=== PATIENT | male | born 2005 | race Caucasian/White ===

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

== ENCOUNTER 2023-04-03 23:12 | Emergency (ER) | payer OTHER, SELFPAY ==
[2023-04-03 23:13] VITALS: BP 131/89; PULSE 68; RESP 16; TEMP 36.5; BMI 26.2
[2023-04-03 23:16] VITALS: BP 131/89; PULSE 68; RESP 16; TEMP 36.5
--- NOTE | 2023-04-03 23:36 | EDS_ITS ---
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 [id number], right ring finger cut. Tetanus Immunization: 5-10 years [facility] Medical History (Updated 04/04/23 @ 00:[address] Wiliam Burr MD) Encounter for screening for COVID-19 Large tonsils Thumb fracture Home Medications ondansetron 4 mg disintegrating tablet 8 mg (2 x 4 mg) PO Q8H PRN PRN Nausea #12 tabs 06/01/21 [Rx Last Taken Unknown] Allergy/AdvReac Type Severity Reaction Status Date / Time No Known Allergies Allergy Verified 04/03/23 23:13 Social History (Updated 05/31/21 @ 22:[address] Wiliam Burr MD) Smoking Status: Never smoker ROS ROS ED Constitutional Constitutional ED: Denies chills or fever(s) Musculoskeletal Musculoskeletal: Reports extremity pain; Denies neck pain Integumentary Reports wounds; Denies Abrasions or rash Neurologic Neurologic: Denies paresthesias or weakness EXAM Physical Exam Const Vital Signs: 04/03/23 23:13 04/03/23 23:16 Temperature 97.7 F L 97.7 F L Temperature Source Temporal Temporal Pulse Rate 68 68 Respiratory Rate 16 16 Blood Pressure 131/89 H 131/89 H Blood Pressure Mean 103 103 Positive well nourished and well developed General Appearance ED: well developed and NAD Neck full ROM and supple Back/Spine normal ROM and normal to inspection Extremity Extremity Narrative: 1 cm horizontal laceration volar aspect of the right ring finger at the crease of the DIPJ. FDP function fully intact. Minor venous bleeding. Neuro oriented x3, no focal motor deficits and no sensory deficits noted Sensorium / Orientation: alert Psych mental status grossly normal and thought process normal Skin Skin Narrative: Laceration right ring finger see above Rashes: no rashes MDM MDM MDM Narrative Medical decision making narrative: Laceration repaired, tetanus updated. No need for x-ray here low suspicion of foreign body this is a superficial laceration although it is full-thickness through the skin. Close a patient follow-up for suture removal given appropriate work restrictions. Procedures Lacerations R ring finger: Length: 1 cm Depth: Sub Q Shape: Linear Prep: Sterile Conditions and Chlorhexadine Laceration repair: Irrigated, Lidocaine with epi (topical LET only) and Skin sutures Irrigated (ml): 50 Number of Sutures/[place]: 3 Suture Information: Ethilon, Simple and 5-0 Discharge Plan Triage Chief Complaint: Laceration ED Provider: Wiliam Burr Dx/Rx/DC Orders Clinical Impression: Kocxkwtwac-bglydow-vrcbfxpuh (DTP) vaccination, Laceration of right ring finger Instructions: ED Laceration, Hand: All Closures Prescriptions: No Action ondansetron [ondansetron] 4 MG tablet 8 mg PO Q8H PRN PRN (Reason: Nausea) Qty: 12 0RF Primary Care Provider: Jennifer Herrera Referrals: [facility] Phys[facility]] - 10 Day for suture removal Jennfier Herrera MD [Primary Care Provider] -
[2023-04-03] MEDS: Lidocaine 1% (20 ml mdv) 20 ML Vial INFILT (23:45)
[2023-04-03] MEDS: Lidocaine/Epi/Tetracaine 50 ML 1 APPLIC TOPICAL (23:45)
[2023-04-03] MEDS: Diphth,Pertuss(Acell),Tet Vac 0.5 ML Vial IM (23:45)
== END 2023-04-04 00:23 | disposition home or self-care (01) ==
PROVIDERS: Emergency Provider Emergency Medicine; PCP Family Medicine; Visit Provider Emergency Medicine
DX: S61.214A Laceration without foreign body of right ring finger without damage to nail, initial encounter (principal); Y99.0 Civilian activity done for income or pay; W26.8XXA Contact with other sharp object(s), not elsewhere classified, initial encounter; Y93.89 Activity, other specified; Y92.511 Restaurant or cafe as the place of occurrence of the external cause; Z23 Encounter for immunization
CPT/HCPCS: 12001; 90471; 90715; 99283